=== PATIENT | male | born 1950 | race Caucasian/White ===

== ENCOUNTER → 2016-02-12 | Outpatient (CLI) | payer OTHER ==
[2016-02-12 14:22] LABS: ABSOLUTE BASOPHILS # (AUTO) 0.1 10^3/uL (0.0-0.2); ABSOLUTE EOSINOPHILS # (AUTO) 0.1 10^3/uL (0.0-0.6); ABSOLUTE LYMPHOCYTES (AUTO) 0.9 10^3/uL (0.5-4.7); ABSOLUTE MONOCYTES (AUTO) 1.3 10^3/uL (0.1-1.4); ABSOLUTE NEUT (AUTO) 4.3 10^3/uL (1.7-8.2); BASOPHILS % (AUTO) 1.1 % (0-2); EOSINOPHILS % (AUTO) 1.9 % (0-6); HEMATOCRIT 45.5 % (37.9-51.0); HEMOGLOBIN 15.5 g/dL (13.5-17.0); LYMPHOCYTES % (AUTO) 13.9 % (13-45); MEAN CORPUSCULAR HEMOGLOBIN 31.6 pg (27.0-33.4); MEAN CORPUSCULAR HGB CONC 34.2 g/dL (32.0-36.0); MEAN CORPUSCULAR VOLUME 92 fl (80-97); MONOCYTES % (AUTO) 18.9 % (3-13); RED BLOOD COUNT 4.92 10^6/uL (4.35-5.55); RED CELL DISTRIBUTION WIDTH 13.1 % (11.5-14.0); SEGMENTED NEUTROPHILS % (AUTO) 64.2 % (42-78); WHITE BLOOD COUNT 6.6 10^3/uL (4.0-10.5)
[2016-02-12 14:27] LABS: ANION GAP 14 (5-19); BLOOD UREA NITROGEN 16 mg/dL (7-20); CALCIUM 9.3 mg/dL (8.4-10.2); CARBON DIOXIDE 28 mmol/L (22-30); CHLORIDE 96 mmol/L (98-107); CREATININE RESULT 0.94 mg/dL (0.52-1.25); GLUCOSE 95 mg/dL (75-110); POTASSIUM 4.7 mmol/L (3.6-5.0)
[2016-02-12 14:55] LABS: CARCINOEMBRYONIC ANTIGEN 3.7 ng/mL (<3.0)
== END ==
LOC: OD 13:25
PROVIDERS: ATTEND Specialist
DX: R19.7 Diarrhea, unspecified (principal); R10.9 Unspecified abdominal pain; R97.0 Elevated carcinoembryonic antigen [CEA]; C25.0 Malignant neoplasm of head of pancreas
CPT/HCPCS: 36415; 80048; 82378; 85025; 87493

== ENCOUNTER 2016-02-15 09:35 | Day surgery (SDC) | payer OTHER ==
[~2016-02-15 09:35] MED LIST: EPINEPHRINE INJ 1 MG/10 ML DISP.SYRIN ONE; FENTANYL CITRATE INJ/PF 100 MCG/2 ML AMPUL ONE; FLUMAZENIL INJ 0.5 MG/5 ML VIAL IV ONE; GLUCAGON,HUMAN RECOMB 1 MG INJ ONE; GLYCOPYRROLATE INJ 0.4 MG/2 ML VIAL ONE; NALOXONE HCL INJ/PF 0.4 MG/1 ML SDV ONE; ONDANSETRON HCL INJ/PF 4 MG/2 ML SDV ONE; PROMETHAZINE HCL INJ 25 MG/1 ML VIAL ONE
[2016-02-15] MEDS: MIDAZOLAM 2 MG/2 ML INJ ONE ×3 (10:53→11:05)
[2016-02-15] MEDS ORDERED: LIDOCAINE 2% JELLY 5 ML TUBE ONE (10:55)
[2016-02-15 12:10] VITALS: BP 113/75
[2016-02-15 12:33] LABS: ABSOLUTE BASOPHILS # (AUTO) 0.1 10^3/uL (0.0-0.2); ABSOLUTE EOSINOPHILS # (AUTO) 0.1 10^3/uL (0.0-0.6); ABSOLUTE LYMPHOCYTES (AUTO) 0.6 10^3/uL (0.5-4.7); ABSOLUTE MONOCYTES (AUTO) 0.9 10^3/uL (0.1-1.4); ABSOLUTE NEUT (AUTO) 3.4 10^3/uL (1.7-8.2); BASOPHILS % (AUTO) 1.4 % (0-2); EOSINOPHILS % (AUTO) 1.9 % (0-6); HEMOGLOBIN 13.8 g/dL (13.5-17.0); HGB HCT DIFFERENCE 0.4; LYMPHOCYTES % (AUTO) 11.8 % (13-45); MEAN CORPUSCULAR HEMOGLOBIN 31.4 pg (27.0-33.4); MEAN CORPUSCULAR HGB CONC 33.8 g/dL (32.0-36.0); MEAN CORPUSCULAR VOLUME 93 fl (80-97); MONOCYTES % (AUTO) 18.1 % (3-13); RED CELL DISTRIBUTION WIDTH 12.8 % (11.5-14.0); SEGMENTED NEUTROPHILS % (AUTO) 66.8 % (42-78); WHITE BLOOD COUNT 5.1 10^3/uL (4.0-10.5)
[2016-02-15 12:43] LABS: ANION GAP 11 (5-19); BLOOD UREA NITROGEN 13 mg/dL (7-20); CALCIUM 9.1 mg/dL (8.4-10.2); CARBON DIOXIDE 28 mmol/L (22-30); CHLORIDE 100 mmol/L (98-107); GLUCOSE 135 mg/dL (75-110); POTASSIUM 5.2 mmol/L (3.6-5.0); SODIUM 138.9 mmol/L (137-145)
--- NOTE | 2016-02-15 13:04 | HISTORY AND PHYSICAL E ---
History and Physical NAME: CLEOPATRA TRAVIS : 1950 AGE: 65Y ADMITTED: 02/15/2016 ROOM: CHIEF COMPLAINT: Persistent diarrhea, etiology undetermined. HISTORY: Patient known to me. In 2013, colonoscopy showed rectosigmoid polyp resected, small rectal polyp. Colonoscopy done showing sigmoid diverticulosis and 0.5-cm polyp resected. It was benign hyperplastic polyp. Patient continued to have nocturnal diarrhea and daytime diarrhea. He was treated recently with antibiotics, and question of C. difficile was entertained and he was given course of Flagyl. Patient continued to have symptoms. The patient continued to have diarrhea. Patient's stool C. difficile negative x2. Persistent diarrhea. His CEA is 3.7. His white counts are normal. The patient did have a recent history of abscess in his tooth. He was eating [place] food and had abscess in his tooth. Has been on antibiotics for abscess in his tooth, Cleocin and Augmentin. Diarrhea treated with Flagyl, 10 days. Some improvement. Persistent diarrhea. REVIEW OF SYSTEMS: CARDIAC: Hypertension. ENDOCRINE: Negative. ONCOLOGY/HEMATOLOGY: Skin lesion. FAMILY HISTORY: His father had lung CA. His mom had hepatitis B. SOCIAL HISTORY: Patient is . He drinks 4-5 drinks a week. PAST SURGICAL HISTORY: He did have varicose vein, right leg. He did have colonoscopy by myself and at [facility]. CONCLUSION: Persistent severe diarrhea, etiology undetermined. DIAGNOSTIC TEST RESULTS: White count 6.6. Hemoglobin 15. Crit 45. C. difficile negative. PLAN: Colonoscopy. We are going to do his colon with no prep because of persistent diarrhea over the last week or so. Admit tomorrow, 02/14. ALLERGIES: Patient has no known allergies. DICTATING PHYSICIAN: DELLA ROSENBERG M.D. [id number] PHY#: [id number] ID: [id number] JOB#: [id number] ACCT: [id number] cc:DEDRA NOEL M.D., MAHMOUD M.D. >
[2016-02-15 13:12] LABS: ERYTHROCYTE SEDIMENTATION RATE 49 mm/hr (0-20)
--- NOTE | 2016-02-18 10:47 | DISCHARGE SUMMARY E ---
Discharge Summary NAME: CLEOPATRA TRAVIS : 1950 AGE: 65Y ADMITTED: 02/15/2016 DISCHARGED: 02/15/2016 HISTORY: The patient is a 65-year-old male who was seen in the office a few days ago with diarrhea. Stool studies for C. diff. and for Salmonella and regular stool culture were all negative. The patient received Cleocin and antibiotic for tooth abscess. He was eating in [place] restaurant. Possibility of C. diff. was considered. The patient was given a course of Flagyl with some improvement. The patient received Cleocin and Augmentin. Today's colonoscopy was consistent with diffuse C. diff. DISCHARGE PLAN: Vancomycin 250 q.i.d. x10 days. Awaiting biopsy results. Patient advised regarding stool isolation and patient is to see us in the office in the next few days. The patient was advised if continues to have symptoms, to go to the emergency room at [facility] or at [facility] for admission. CONCLUSIONS: C. diff. colitis. Awaiting biopsy. DICTATING PHYSICIAN: DELLA ROSENBERG M.D. [id number] PHY#: [id number] ID: [id number] JOB#: [id number] ACCT: [id number] cc:[facility] M.D. ISSA, MAHMOUD M.D. >
--- NOTE | 2016-02-18 10:51 | OPERATIVE REPORT E ---
Operative Report NAME: CLEOPATRA TRAVIS : 1950 AGE: 65Y DATE OF SURGERY: 02/15/2016 ROOM: PREOPERATIVE DIAGNOSES: 1. DIARRHEA. 2. HISTORY OF ANTIBIOTIC TREATMENT FOR TOOTH ABSCESS. 3. STOOLS NEGATIVE FOR C. DIFF. X2. STOOL CULTURES NEGATIVE, PERSISTENT DIARRHEA. POSTOPERATIVE DIAGNOSIS: DIFFUSE COLITIS. OPERATION: Colonoscopy to the proximal ascending colon. Cecum was not seen. SURGEON: DELLA ROSENBERG M.D. PROCEDURE: Rectal exam; normal. Rectosigmoid shows colitis. Descending colon; colitis. Transverse colon; colitis. Ascending colon was consistent with colitis, most likely C. diff. There was no waxy membrane. Cecum; large amount of liquid stool. Scope withdrawn from ascending, transverse, descending, sigmoid all the way to the rectum. CONCLUSIONS: Diffuse nonspecific colitis, most likely C. diff. Biopsy samples obtained from right colon, transverse colon and sigmoid colon. PLAN: Full liquids, soft low residue diet. Avoid dairy products. Advance soft low residue diet as tolerated. Start on vancomycin 250 q.i.d. x10 days. The patient is advised regarding stool isolation. DICTATING PHYSICIAN: DELLA ROSENBERG M.D. [id number] PHY#: [id number] ID: [id number] JOB#: [id number] ACCT: [id number] cc:[facility] ESTRELLADEDRA SONI M.D., MAHMOUD M.D. >
== END 2016-02-15 12:15 | disposition home or self-care (01) ==
LOC: END 09:35
PROVIDERS: ATTEND Specialist
PROC: 0DBK8ZX Excision of Ascending Colon, Via Natural or Artificial Opening Endoscopic, Diagnostic (ICD-10-PCS; 2016-02-15)
PROC: 0DBL8ZX Excision of Transverse Colon, Via Natural or Artificial Opening Endoscopic, Diagnostic (ICD-10-PCS; 2016-02-15)
PROC: 0DBN8ZX Excision of Sigmoid Colon, Via Natural or Artificial Opening Endoscopic, Diagnostic (ICD-10-PCS; principal; 2016-02-15 10:00)
DX: K52.9 Noninfective gastroenteritis and colitis, unspecified (principal); I10 Essential (primary) hypertension
CPT/HCPCS: 45380; 36415; 85025; 85652; 80048; 88305 ×2; J2250; J3010; J1610; J2405; J0171; J2310; J2550; J3490

== ENCOUNTER → 2016-02-20 | Outpatient (CLI) | payer OTHER ==
[2016-02-20 15:34] LABS: ABSOLUTE BASOPHILS # (AUTO) 0.2 10^3/uL (0.0-0.2); ABSOLUTE EOSINOPHILS # (AUTO) 0.1 10^3/uL (0.0-0.6); ABSOLUTE LYMPHOCYTES (AUTO) 1.1 10^3/uL (0.5-4.7); ABSOLUTE NEUT (AUTO) 3.9 10^3/uL (1.7-8.2); BASOPHILS % (AUTO) 3.1 % (0-2); EOSINOPHILS % (AUTO) 2.2 % (0-6); HEMOGLOBIN 13.9 g/dL (13.5-17.0); HGB HCT DIFFERENCE 0.7; LYMPHOCYTES % (AUTO) 17.6 % (13-45); MEAN CORPUSCULAR HEMOGLOBIN 31.6 pg (27.0-33.4); MEAN CORPUSCULAR HGB CONC 33.9 g/dL (32.0-36.0); MEAN CORPUSCULAR VOLUME 93 fl (80-97); MONOCYTES % (AUTO) 15.6 % (3-13); RED CELL DISTRIBUTION WIDTH 13.2 % (11.5-14.0); SEGMENTED NEUTROPHILS % (AUTO) 61.5 % (42-78); WHITE BLOOD COUNT 6.4 10^3/uL (4.0-10.5)
[2016-02-20 16:14] LABS: ERYTHROCYTE SEDIMENTATION RATE 36 mm/hr (0-20)
== END ==
LOC: OD 15:08
PROVIDERS: ATTEND Specialist
DX: R10.9 Unspecified abdominal pain (principal)
CPT/HCPCS: 36415; 85025; 85652; 86140

== ENCOUNTER → 2016-03-25 | Outpatient (CLI) | payer OTHER ==
[2016-03-25 16:14] LABS: HEMATOCRIT 45.9 % (37.9-51.0); HEMOGLOBIN 15.2 g/dL (13.5-17.0); HGB HCT DIFFERENCE -0.3; MEAN CORPUSCULAR HEMOGLOBIN 31.6 pg (27.0-33.4); MEAN CORPUSCULAR HGB CONC 33.1 g/dL (32.0-36.0); MEAN CORPUSCULAR VOLUME 95 fl (80-97); RED BLOOD COUNT 4.82 10^6/uL (4.35-5.55); RED CELL DISTRIBUTION WIDTH 14.9 % (11.5-14.0); WHITE BLOOD COUNT 3.9 10^3/uL (4.0-10.5)
[2016-03-25 16:29] LABS: BAND NEUTROPHILS % (MANUAL) 2 % (3-5); BASOPHILS % (MANUAL) 0 % (0-2); EOSINOPHILS % (MANUAL) 3 % (0-6); LYMPHOCYTES % (MANUAL) 21 % (13-45); TOTAL CELLS COUNTED 100
[2016-03-25 16:31] LABS: ANISOCYTOSIS SLIGHT; TOXIC GRANULATION SLIGHT
[2016-03-25 16:36] LABS: ALANINE AMINOTRANSFERASE 42 U/L (21-72); ALBUMIN 3.8 g/dL (3.5-5.0); ALKALINE PHOSPHATASE 77 U/L (38-126); ANION GAP 9 (5-19); ASPARTATE AMINO TRANSFERASE 27 U/L (17-59); BILIRUBIN,TOTAL 0.7 mg/dL (0.2-1.3); BLOOD UREA NITROGEN 17 mg/dL (7-20); CALCIUM 9.5 mg/dL (8.4-10.2); CARBON DIOXIDE 26 mmol/L (22-30); CHLORIDE 102 mmol/L (98-107); CREATININE RESULT 0.98 mg/dL (0.52-1.25); GLUCOSE 91 mg/dL (75-110); POTASSIUM 4.3 mmol/L (3.6-5.0); SODIUM 137.3 mmol/L (137-145); TOTAL PROTEIN 7.1 g/dL (6.3-8.2)
[2016-03-25 16:51] LABS: ERYTHROCYTE SEDIMENTATION RATE 13 mm/hr (0-20)
[2016-03-29 11:29] LABS: DEAMIDATED GLIADIN IGA AB 12 units (0-19); DEAMIDATED GLIADIN IGG AB 4 units (0-19); IMMUNOGLOBULIN A 2 324 mg/dL (61-437); T-TRANSGLUTAMINASE (TTG) IGG <2 U/mL (0-5)
== END ==
LOC: OD 15:23
PROVIDERS: ATTEND Specialist
DX: K90.0 Celiac disease (principal); R10.9 Unspecified abdominal pain; R19.7 Diarrhea, unspecified
CPT/HCPCS: 36415; 80053; 83520; 85025; 85652; 86140; 87045; 87205; 87493